=== PATIENT | male | born 1985 | race Two or more races ===

== ENCOUNTER 2016-12-15 01:30 | Emergency (ER) | payer SELFPAY ==
[~2016-12-15] VITALS: Ht 177.8 cm; Wt 83.9 kg
[2016-12-15 01:41] VITALS: BP 132/87
[2016-12-15] MEDS ORDERED: HYDR25TA PO (02:59)
--- NOTE | 2016-12-15 03:01 | PHYS DOC ---
Past Medical History Past Medical History: Anxiety Past Surgical History: No Surgical History Alcohol Use: None Drug Use: None Adult General Chief Complaint Chief Complaint: ANXIETY/PANIC ATTACK HPI HPI 31-year-old male presenting to the emergency department today with waking up feeling anxious feeling short of breath. This happened approximately 1 hour prior to arrival. Location generalized. Duration intermittent. No alleviating factors present. Timing and night. Review of systems is negative for chest pain shortness of breath abdominal pain nausea vomiting. All other review of systems is negative unless otherwise noted in history of present illness. Review of Systems Review of Systems SEE ABOVE. Allergies Allergies Allergies Coded Allergies Type Severity Reaction Last Updated Verified No Known Drug Allergies 12/15/16 No Physical Exam Physical Exam Constitutional: Well developed, well nourished, no acute distress, non-toxic appearance. [] HENT: Normocephalic, atraumatic, bilateral external ears normal, oropharynx moist, no oral exudates, nose normal. [] Eyes: PERRLA, EOMI, conjunctiva normal, no discharge. [] Neck: Normal range of motion, no tenderness, supple, no stridor. [] Cardiovascular:Heart rate regular rhythm, no murmur [] Lungs & Thorax: Bilateral breath sounds clear to auscultation [] Abdomen: Bowel sounds normal, soft, no tenderness, no masses, no pulsatile masses. [] Skin: Warm, dry, no erythema, no rash. [] Back: No tenderness, no CVA tenderness. [] Extremities: No tenderness, no cyanosis, no clubbing, ROM intact, no edema. [] Neurologic: Alert and oriented X 3, normal motor function, normal sensory function, no focal deficits noted. [] Psychologic: Affect normal, judgement normal, mood normal. [] Current Patient Data Vital Signs Vital Signs Date Time Temp Pulse Resp B/P Pulse Ox O2 Delivery O2 Flow Rate FiO2 12/15/16 01:41 97.5 87 18 132/87 99 Room Air 97.5 EKG EKG [] Radiology/Procedures Radiology/Procedures [] Course & Med Decision Making Course & Med Decision Making Pertinent Labs and Imaging studies reviewed. (See chart for details) [] 31-year-old male presenting to the emergency department after waking up feeling anxious and having a difficulty time breathing. On arrival here the patient has normal vital signs well-appearing without any distress. Pertinent physical exam findings show a completely normal physical exam. Patient was provided hydroxyzine for anxiety at home as needed at night. I recommended he follow up with his doctor for sleep testing for possible sleep apnea given he woke up short of breath. He was subsequently discharged home to follow up in the next 2-3 days. Dragon Disclaimer Dragon Disclaimer This electronic medical record was generated, in whole or in part, using a voice recognition dictation system. Departure Departure Impression: Primary Impression: Anxiety Disposition: HOME, SELF-CARE Condition: STABLE Referrals: NO PCP (PCP) FRANKLYN GUARDADO MD Patient Instructions: Anxiety and Panic Attacks Additional Instructions: Thank you for allowing us to participate in your care today. Followup with your primary care physician in 3 days if your symptoms do not improve. If you do not have a primary care provider you can ask for a list of our primary care providers. Return to the emergency department you have any new or concerning findings. This should be evaluated by the primary care physician and any necessary consulting services for continued management within a few days after discharge. Return to emergency room if you have any new or concerning symptoms including but not limited to fever, chills, nausea, vomiting, intractable pain, any new rashes, chest pain, shortness of air, uncontrolled bleeding, difficulty breathing, and/or vision loss. Scripts Hydroxyzine Hcl 25 Mg Tablet1 Tab PO PRN QHS PRN ANXIETY / AGITATION #10 TAB Prov:LUPE LYN MD 12/15/16 LUPE LYN MD Dec 15, 2016 03:01
== END 2016-12-15 03:06 | disposition home or self-care (01) ==
LOC: ER 01:30
DX: F41.9 Anxiety disorder, unspecified (principal)
CPT/HCPCS: 99284

== ENCOUNTER 2017-01-05 00:41 | Emergency (ER) | payer SELFPAY ==
[~2017-01-05] VITALS: Ht 172.7 cm; Wt 83.9 kg
[~2017-01-05 00:41] MED LIST: HYDR25TA PO
[2017-01-05] MEDS ORDERED: HYDR25TA PO (01:50)
--- NOTE | 2017-01-05 01:51 | PHYS DOC ---
Past Medical History Past Medical History: Anxiety Past Surgical History: No Surgical History Alcohol Use: None Drug Use: None Adult General Chief Complaint Chief Complaint: ANXIETY/PANIC ATTACK HPI HPI Patient is a 31 year old male who presents with family for hydroxyzine refill for continued intermittent anxiety symptoms because he cannot get into a PCP office until next month. He also mentions chronic intermittent right middle finger pain and swelling, worse after work/repeated use of finger, gets better with rest. He denies recent injury, chest pain, cough, headache, numbness, tingling, weakness. Denies SI/HI/AH/VH Review of Systems Review of Systems Constitutional: Denies fever or chills [] Eyes: Denies change in visual acuity, redness, or eye pain [] HENT: Denies nasal congestion or sore throat [] Respiratory: Denies cough or shortness of breath [] Cardiovascular: No additional information not addressed in HPI [] GI: Denies abdominal pain, nausea, vomiting, bloody stools or diarrhea [] : Denies dysuria or hematuria [] Musculoskeletal: Denies back pain [] Integument: Denies rash or skin lesions [] Neurologic: Denies headache, focal weakness or sensory changes [] Endocrine: Denies polyuria or polydipsia [] Allergies Allergies Allergies Coded Allergies Type Severity Reaction Last Updated Verified No Known Drug Allergies 12/15/16 No Physical Exam Physical Exam Constitutional: Well developed, well nourished, no acute distress, non-toxic appearance. [] HENT: Normocephalic, atraumatic, bilateral external ears normal, oropharynx moist, nose normal. [] Eyes: PERRLA, EOMI. [] Neck: Normal range of motion, supple. [] Cardiovascular:Heart rate regular rhythm [] Lungs & Thorax: Bilateral breath sounds clear to auscultation [] Abdomen: Bowel sounds normal, soft, no tenderness. [] Skin: Warm, dry, no erythema, no rash. [] Back: Normal range of motion. [] Extremities: Mild tenderness to right middle finger distal phalanx with no visual or palpable abnormality, ROM intact, no edema, sensation intact to light touch, brisk cap refill. [] Neurologic: Alert and oriented X 3, normal motor function, normal sensory function, no focal deficits noted. [] Psychologic: Affect normal, judgement normal, mood normal. [] Current Patient Data Vital Signs Vital Signs Date Time Temp Pulse Resp B/P Pulse Ox O2 Delivery O2 Flow Rate FiO2 01/05/17 02:21 98.3 89 16 98 Room Air 98.3 Course & Med Decision Making Course & Med Decision Making Pertinent Labs and Imaging studies reviewed. (See chart for details) Provided refill for hydroxyzine. Discussed symptomatic management for musculoskeletal pain. Encouraged outpatient follow-up. Return precautions given. He and understand and agree with plan. Dragon Disclaimer Dragon Disclaimer This electronic medical record was generated, in whole or in part, using a voice recognition dictation system. Departure Departure Impression: Primary Impression: Anxiety Additional Impression: Pain of right middle finger Disposition: HOME, SELF-CARE Condition: STABLE Referrals: NO PCP (PCP) Patient Instructions: Anxiety and Panic Attacks, [id number], Musculoskeletal Pain Additional Instructions: Take Tylenol or ibuprofen as needed for pain. Take hydroxyzine as needed for anxiety. Follow-up with your primary care doctor. Return for any concerns. Scripts Hydroxyzine Hcl 25 Mg Tablet1 Tab PO PRN QHS PRN ANXIETY / AGITATION #30 TAB Prov:Oh VERAS MD 01/05/17 Problem Qualifiers Oh VERAS MD Jan 05, 2017 01:51
[2017-01-05 02:21] VITALS: BP 133/91
== END 2017-01-05 02:26 | disposition home or self-care (01) ==
LOC: ER 00:42
DX: F41.9 Anxiety disorder, unspecified (principal); M79.644 Pain in right finger(s)
CPT/HCPCS: 99284

== ENCOUNTER 2017-01-20 19:19 | Emergency (ER) | payer SELFPAY ==
[~2017-01-20] VITALS: Ht 177.8 cm; Wt 83.9 kg
--- NOTE | 2017-01-20 21:18 | PHYS DOC ---
Past Medical History Past Medical History: Anxiety Past Surgical History: No Surgical History Alcohol Use: None Drug Use: None Adult General Chief Complaint Chief Complaint: KNEE SWELLING HPI HPI Patient is a 31 year old male with history of anxiety who presents today with right posterior knee pain that has been going on for couple days. Patient denies any trauma. He states he believes he has a blood clot in his knee. Patient would like to be checked for blood clot. Patient denies any trauma. Denies taking any blood thinners. Denies any recent hospitalization. Denies any chest pain or shortness of breath. He states he works out and did leg exercises yesterday. Review of Systems Review of Systems Constitutional: Denies fever or chills [] Eyes: Denies change in visual acuity, redness, or eye pain [] HENT: Denies nasal congestion or sore throat [] Respiratory: Denies cough or shortness of breath [] Cardiovascular: No additional information not addressed in HPI [] GI: Denies abdominal pain, nausea, vomiting, bloody stools or diarrhea [] : Denies dysuria or hematuria [] Musculoskeletal: Right posterior knee pain Integument: Denies rash or skin lesions [] Neurologic: Denies headache, focal weakness or sensory changes [] Endocrine: Denies polyuria or polydipsia [] Allergies Allergies Allergies Coded Allergies Type Severity Reaction Last Updated Verified No Known Drug Allergies 12/15/16 No Physical Exam Physical Exam Constitutional: Well developed, well nourished, no acute distress, non-toxic appearance. [] HENT: Normocephalic, atraumatic, bilateral external ears normal, oropharynx moist, no oral exudates, nose normal. [] Eyes: PERRLA, EOMI, conjunctiva normal, no discharge. [] Neck: Normal range of motion, no tenderness, supple, no stridor. [] Cardiovascular:Heart rate regular rhythm, no murmur [] Lungs & Thorax: Bilateral breath sounds clear to auscultation [] Abdomen: Bowel sounds normal, soft, no tenderness, no masses, no pulsatile masses. [] Skin: Warm, dry, no erythema, no rash. [] Back: No tenderness, no CVA tenderness. [] Extremities: Right knee with no obvious edema and obvious ecchymosis, no tenderness on palpation of the right knee. Negative Homans sign to the right lower extremity. Full range of motion to the right lower extremity. Negative Navin sign, negative Luke sign, negative anterior-posterior drawer sign to the right knee. +2 right pedal pulse. Cap refill less than 2 seconds the right lower extremity. Sensation intact to the right lower extremity. Neurologic: Alert and oriented X 3, normal motor function, normal sensory function, no focal deficits noted. [] Psychologic: Affect normal, judgement normal, mood normal. [] Current Patient Data Vital Signs Vital Signs Date Time Temp Pulse Resp B/P Pulse Ox O2 Delivery O2 Flow Rate FiO2 01/20/17 19:25 97.9 83 20 99 Room Air 97.9 EKG EKG [] Radiology/Procedures Radiology/Procedures [] Course & Med Decision Making Course & Med Decision Making Pertinent Labs and Imaging studies reviewed. (See chart for details) Patient is in the ED complaining of knee pain and stating he believes he has a blood clot in the knee and would like an ultrasound of his knee. We had already done an x-ray of the knee which was interpreted by Dr. Chavez and is negative for any acute findings. Venous Doppler of the right lower extremity were done. Patient is requesting to be discharged before results are back. He was informed he will be responsible for following up with the medical records for results. Dragon Disclaimer Dragon Disclaimer This electronic medical record was generated, in whole or in part, using a voice recognition dictation system. Departure Departure Impression: Primary Impression: Knee pain, right Disposition: 01 HOME, SELF-CARE Condition: STABLE Referrals: NO PCP (PCP) KAILEY GEE II, MD Follow-up with the provided orthopedic doctor in 1-2 weeks. Patient Instructions: Knee Pain Additional Instructions: You were seen for knee pain. You requested an ultrasound of the right lower extremity to rule out blood clot. Your ultrasound results are not back. Please follow-up with the medical records office for results. Follow-up with the provided orthopedic doctor for ongoing knee pain. Problem Qualifiers Primary Impression: Knee pain, right Chronicity: acute Qualified Code: M25.561 - Pain in right knee SHAWN SERRATO KHANG Jan 20, 2017 21:17
[2017-01-20 22:10] VITALS: BP 130/72
--- NOTE | 2017-01-20 22:15 | RAD ---
Examination: Ultrasound right lower extremity venous system HISTORY Right calf pain COMPARISON None available. TECHNIQUE Grayscale, color Doppler 2D, spectral waveform analysis of the right lower extremity venous system were performed Findings: Common femoral vein, superficial femoral vein, popliteal vein demonstrate normal compression and augmentation of flow. The visualized calf veins are patent. IMPRESSION No evidence of deep venous thrombosis identified in the right lower extremity venous system. Electronically signed by: Zafar Leyva (Jan 20, 2017 22:14:49)
--- NOTE | 2017-01-21 09:02 | RAD ---
Right knee with patella, 4 views, 01/20/2017: History: Pain No fracture or dislocation is identified. No significant arthritic change is seen. No joint effusion is evident. IMPRESSION: No significant right knee abnormality is detected.
== END 2017-01-20 22:15 | disposition home or self-care (01) ==
LOC: ER 19:19
DX: M25.561 Pain in right knee (principal); F41.9 Anxiety disorder, unspecified
CPT/HCPCS: 73564; 93971; 99284-25